=== PATIENT | male | born 1995 | race African-American/Black ===

== ENCOUNTER 2017-06-10 09:56 | Emergency (ER) | payer MEDICAID, OTHER ==
[~2017-06-10] VITALS: Ht 213.4 cm; Wt 114.0 kg
[2017-06-10 09:59] VITALS: BP 128/68
== END 2017-06-10 12:15 | disposition home or self-care (01) ==
LOC: ER 10:24
DX: R06.02 Shortness of breath (principal); F12.10 Cannabis abuse, uncomplicated
CPT/HCPCS: 99281

== ENCOUNTER 2017-10-20 10:48 | Emergency (ER) | payer MEDICAID, OTHER ==
[~2017-10-20] VITALS: Ht 213.4 cm; Wt 64.0 kg
[2017-10-20 11:22] VITALS: BP 132/58
== END 2017-10-20 16:17 | disposition left against medical advice (07) ==
LOC: ER 12:36
DX: M25.562 Pain in left knee (principal); M25.561 Pain in right knee; M54.5 Low back pain; J45.909 Unspecified asthma, uncomplicated; V89.2XXA Person injured in unspecified motor-vehicle accident, traffic, initial encounter; Y93.89 Activity, other specified; Y92.89 Other specified places as the place of occurrence of the external cause; Y99.8 Other external cause status
CPT/HCPCS: 99281

== ENCOUNTER 2017-10-21 09:29 | Emergency (ER) | payer OTHER ==
[~2017-10-21] VITALS: Ht 213.4 cm; Wt 64.0 kg
[2017-10-21] MEDS ORDERED: ACETAMINOPHEN 325MG TABLET PO ONE (11:30)
[2017-10-21 11:41] VITALS: BP 121/75
== END 2017-10-21 11:43 | disposition home or self-care (01) ==
LOC: ER 09:29
DX: G89.29 Other chronic pain (principal); J45.909 Unspecified asthma, uncomplicated
CPT/HCPCS: 99282; J7030

== ENCOUNTER 2017-12-09 10:47 | Emergency (ER) | payer OTHER ==
[~2017-12-09] VITALS: Ht 182.9 cm; Wt 68.8 kg
[2017-12-09 11:11] VITALS: BP 111/62
== END 2017-12-09 13:12 | disposition home or self-care (01) ==
LOC: ER 10:47
DX: M54.9 Dorsalgia, unspecified (principal); J45.909 Unspecified asthma, uncomplicated; R20.0 Anesthesia of skin
CPT/HCPCS: 99281

== ENCOUNTER 2018-08-24 20:33 | Emergency (ER) | payer OTHER ==
[~2018-08-24] VITALS: Ht 175.3 cm; Wt 72.0 kg
[2018-08-24 20:54] VITALS: BP 116/71
== END 2018-08-24 23:27 | disposition left against medical advice (07) ==
LOC: ER 20:33
DX: M79.644 Pain in right finger(s) (principal); Z53.21 Procedure and treatment not carried out due to patient leaving prior to being seen by health care provider

== ENCOUNTER 2018-09-12 15:00 | Emergency (ER) | payer OTHER ==
[~2018-09-12] VITALS: Ht 182.9 cm; Wt 111.0 kg
[2018-09-12 15:21] VITALS: BP 134/89
== END 2018-09-12 17:48 | disposition left against medical advice (07) ==
LOC: ER 15:00
DX: L02.415 Cutaneous abscess of right lower limb (principal); Z53.21 Procedure and treatment not carried out due to patient leaving prior to being seen by health care provider

== ENCOUNTER 2018-09-13 15:42 | Emergency (ER) | payer OTHER ==
[~2018-09-13] VITALS: Ht 182.9 cm; Wt 114.0 kg
[2018-09-13 16:27] VITALS: BP 118/86
== END 2018-09-13 18:14 | disposition home or self-care (01) ==
LOC: ER 17:36
DX: G89.29 Other chronic pain (principal); M54.5 Low back pain; J45.909 Unspecified asthma, uncomplicated
CPT/HCPCS: 99281

== ENCOUNTER 2018-09-22 16:49 | Emergency (ER) | payer OTHER ==
[~2018-09-22] VITALS: Ht 188 cm; Wt 75.0 kg
[2018-09-22 16:50] VITALS: BP 115/75
== END 2018-09-22 17:32 | disposition home or self-care (01) ==
LOC: ER 16:49
DX: G89.29 Other chronic pain (principal); M54.5 Low back pain; J45.909 Unspecified asthma, uncomplicated
CPT/HCPCS: 99283

== ENCOUNTER 2024-02-09 10:47 | Emergency (ER) | payer MEDICAID, OTHER ==
[~2024-02-09] VITALS: Ht 172.7 cm; Wt 82.0 kg
[2024-02-09 10:50] VITALS: O2SAT 98
[2024-02-09 11:03] VITALS: BP 126/63; PULSE 74; RESP 16; TEMP 98.6; O2SAT 99
[2024-02-09 12:18] LABS: BASOPHILS % 0.5 % (0.0-2.0); EOSINOPHILS % 0.4 % (0.0-5.0); HEMATOCRIT. 47.7 % (42.0-52.0); HEMOGLOBIN. 15.2 g/dL (14.0-18.0); LYMPHOCYTES % 16.2 % (20.0-50.0); MEAN CORPUSCULAR HEMOGLOBIN 27.3 pg (28.0-32.0); MEAN CORPUSCULAR HGB CONC 31.8 g/dL (31.0-37.0); MEAN CORPUSCULAR VOLUME 85.9 fL (80.0-94.0); MONOCYTES % 8.6 % (2.0-8.0); NEUTROPHILS % 74.3 % (40.0-76.0); RED BLOOD CELL COUNT 5.56 mill/uL (4.7-6.1); RED CELL DISTRIBUTION WIDTH 14.1 % (11.6-14.6); WHITE BLOOD COUNT 7.3 x1000/uL (4.5-11.0)
[2024-02-09 12:22] LABS: CHLORIDE 106 mEq/L (98-107); POTASSIUM 3.9 mEq/L (3.5-5.1); SODIUM 137 mEq/L (136-145)
[2024-02-09 12:23] LABS: CALCIUM 10.6 mg/dL (8.7-10.4); CARBON DIOXIDE 22 mEq/L (21-32)
[2024-02-09 12:28] LABS: CREATININE 1.1 mg/dL (0.6-1.3); GLUCOSE 107 mg/dL (70-105); UREA NITROGEN BLOOD 26 mg/dL (9-23)
[2024-02-09] MEDS: KETOROLAC 30MG/ML VIAL IM STA (13:30)
[2024-02-09 13:50] LABS: DIFFERENTIAL COMMENT 1
[2024-02-09 13:53] LABS: ALANINE AMINOTRANSFERASE 16 IU/L (10-49); ALBUMIN 5.5 g/dL (3.2-4.8); ASPARTATE AMINOTRANSFERASE 24 IU/L (<34); BILIRUBIN DIRECT 0.2 mg/dL (<=3.0)
[2024-02-09 13:54] LABS: BILIRUBIN TOTAL 0.7 mg/dL (0.1-1.0); PROTEIN TOTAL 9.1 g/dL (6.0-8.3)
[2024-02-09] MEDS: ONDANSETRON 4MG ODT PO ONE (14:06)
[2024-02-09 19:01] LABS: MEAN PLATELET VOLUME 10.6 fl (7.4-10.4); PLATELET 192 x1000/uL (130-400)
== END 2024-02-09 14:25 | disposition home or self-care (01) ==
LOC: ER 10:47
DX: G89.29 Other chronic pain (principal); R10.84 Generalized abdominal pain; J45.909 Unspecified asthma, uncomplicated
CPT/HCPCS: 99283; 80076; 80048; 83690; 85025; 36415; 96372; Q0162; J1885